=== PATIENT | female | born 1995 | race Hispanic/Latino ===

== ENCOUNTER 2025-01-03 12:12 | Outpatient (CLI) | payer SELFPAY | END 2025-01-03 12:13 | disposition home or self-care (01) | LOC: ER/OP 12:12 | PROVIDERS: ATTEND Family Medicine | DX: M25.571 Pain in right ankle and joints of right foot (principal) ==

== ENCOUNTER 2025-01-03 14:18 | Emergency (ER) | payer SELFPAY | END 2025-01-03 15:40 | disposition home or self-care (01) | LOC: ERS 14:18 | DX: S82.301A Unspecified fracture of lower end of right tibia, initial encounter for closed fracture (principal); E10.9 Type 1 diabetes mellitus without complications; W19.XXXA Unspecified fall, initial encounter ==